=== PATIENT | male | born 1975 | race Caucasian/White ===

== ENCOUNTER 2022-01-26 13:28 | Outpatient (CLI) | payer BC, SELFPAY ==
--- NOTE | 2022-01-26 13:45 | CRLHL7_ITS ---
For Patients: As a result of the Century Cures Act, medical imaging exams and procedure reports are released immediately into your electronic medical record. You may view this report before your referring provider. If you have questions, please contact your health care provider. INDICATION: Left eye pain/swelling. TECHNIQUE: Orbits MRI with contrast. The following sequences were obtained: Thin section T1 precontrast/postcontrast and T2 STIR sequences of the orbits in coronal and axial plane. 15 cc of Dotarem gadolinium based contrast agent was administered. COMPARISON: None. FINDINGS: There is abnormal soft tissue thickening and enhancement within the left preseptal periorbital soft tissues caudal to the globe. Mild abnormal enhancement tracks along the anterior aspect of the left inferior rectus muscle. Otherwise no significant postseptal involvement. No organized fluid collection. The ocular globes are normal in size and signal intensity. The lenses are normally positioned in their expected anterior locations. No cupping of the optic disc. Extraocular muscles are normal in size and appearance. Lacrimal glands are normal in size and appearance. The orbital apices are normal in appearance. The intraorbital and intracranial prechiasmatic optic nerves, optic chiasm, optic tracts and cerebral portions of the optic pathways are normal in appearance, with no signal abnormality or pathologic enhancement. No optic nerve atrophy. The cavernous sinuses and Meckel`s caves are normal in appearance. Pituitary gland is normal in appearance. Bilateral maxillary sinus opacification with mildly T1 hyperintense/T2 hypointense material on the right and T1 hypointense/T2 hyperintense material on the left. Findings likely reflect polyps or inspissated secretions. There is accompanying atelectasis of both maxillary sinus antra. IMPRESSION: 1. Inflammatory changes within the left caudal preseptal orbit, compatible with cellulitis in the appropriate clinical setting. Very slight extension into the postseptal compartment along the inferior rectus muscle. No organized fluid collection. No abnormalities associated with the globes/optic nerves on either side. Dictated by Nba Suh MD @ 01/26/2022 3:21:13 PM (Electronically Signed)
== END 2022-01-26 13:29 | disposition home or self-care (01) ==
LOC: MRI 13:30
PROVIDERS: PCP Family Medicine; Visit Provider Family Medicine
DX: H05.222 Edema of left orbit (principal); H57.12 Ocular pain, left eye; H02.845 Edema of left lower eyelid; H02.89 Other specified disorders of eyelid; H53.2 Diplopia; J32.9 Chronic sinusitis, unspecified
CPT/HCPCS: 70543; A9575

== ENCOUNTER 2022-02-13 13:34 | Outpatient (CLI) | payer BC, SELFPAY ==
[2022-02-15 12:56] LABS: Rheumatoid Factor <10 IU/mL (0-14)
[2022-02-16 01:49] LABS: Anti-Nuclear Ab(ANA)IgG ELISA None Detected (None Detected)
== END 2022-02-13 13:35 | disposition home or self-care (01) ==
PROVIDERS: PCP Family Medicine; Visit Provider Otolaryngology
DX: J32.9 Chronic sinusitis, unspecified (principal)
CPT/HCPCS: 86039; 86431; 86618

== ENCOUNTER 2022-02-20 12:49 | Outpatient (CLI) | payer BC, SELFPAY ==
--- NOTE | 2022-02-20 13:00 | CRLHL7_ITS ---
For Patients: As a result of the Century Cures Act, medical imaging exams and procedure reports are released immediately into your electronic medical record. You may view this report before your referring provider. If you have questions, please contact your health care provider. Indication: SINUSITIS Technique: Performed without IV contrast Comparison: MRI orbits 01/26/2022 Findings: Frontal sinuses: Clear. Ethmoid sinuses: Clear. Maxillary sinuses: Complete opacification of the maxillary sinuses. Obstruction of the maxillary sinus drainage pathways. Sphenoid sinuses: Mild mucosal thickening within both sphenoid sinuses with at least partial obstruction of the sphenoethmoidal recesses. Nasal Cavity: Mild rightward curvature nasal septum. No polyps. Nasal turbinates are normal. Other: Mild residual inflammatory changes about the caudal left preseptal soft tissues. Impression: 1. Complete opacification of the maxillary sinuses with obstruction of the sinus drainage pathways. 2. Mild bilateral sinus disease involving the sphenoid sinuses. Please note that all CT scans at this facility use dose modulation, iterative reconstruction, and/or weight-based dosing when appropriate to reduce radiation dose to as low as reasonably achievable. Dictated by Ken Eason MD @ 02/20/2022 4:00:45 PM (Electronically Signed)
== END 2022-02-20 12:50 | disposition home or self-care (01) ==
PROVIDERS: PCP Family Medicine; Visit Provider Otolaryngology
DX: J32.9 Chronic sinusitis, unspecified (principal); J32.0 Chronic maxillary sinusitis; J32.3 Chronic sphenoidal sinusitis
CPT/HCPCS: 70486